=== PATIENT | male | born 1985 | race Caucasian/White ===

== ENCOUNTER 2023-03-05 21:09 | Emergency (ER) | payer MEDICARE, MEDICAID, SELFPAY ==
[2023-03-05 21:13] VITALS: BP 126/89; PULSE 70; RESP 16; TEMP 37; O2SAT 100; BMI 26.4
--- NOTE | 2023-03-05 21:39 | ED.ABDPAIN1 ---
HPI - Abdominal Pain General Chief Complaint: Abdominal Pain Stated Complaint: ABDOMINAL PAIN Time Seen by Provider: 03/05/23 21:25 Source: patient Mode of arrival: walk-in History of Present Illness HPI narrative: presents complaining of left CVA pain . states pain started yesterday. No fever or urinary symptoms. No associated nausea or vomiting MD elicited complaint: Reports abdominal pain and flank pain Related Data Home Medications Medication Instructions Recorded Confirmed doxepin 10 mg capsule 20 mg PO QPM 03/05/23 03/05/23 lamotrigine 25 mg tablet 50 mg PO BID 03/05/23 03/05/23 rufinamide 200 mg tablet 200 mg PO QAM 03/05/23 03/05/23 rufinamide 200 mg tablet 200 mg PO QPM 03/05/23 03/05/23 sumatriptan succinate 100 mg tablet 100 mg PO Q2H PRN migraine headache 03/05/23 03/05/23 topiramate 100 mg tablet 200 mg PO BID 03/05/23 03/05/23 Allergies Allergy/AdvReac Type Severity Reaction Status Date / Time No Known Drug Allergies Allergy Verified 03/05/23 21:13 Review of Systems ROS Status of ROS 10 or more systems reviewed and unremarkable except as noted in history and below Exam Constitutional Vital Signs, click to edit/add: Last Vital Signs Temp 98.6 F 03/05/23 21:13 Pulse 70 03/05/23 21:13 Resp 16 03/05/23 21:13 BP 126/89 03/05/23 21:13 Pulse Ox 100 03/05/23 21:13 O2 Del Method Room Air 03/05/23 21:13 Common normals: no apparent distress, average body habitus, oriented x3, no limitations and healthy appearing Eye Common normals: EOMs intact bilaterally and conjunctivae normal Respiratory Common normals: normal respiratory effort, no retractions, no use of accessory muscles and clear to auscultation bilaterally GI Other: mild LLQ tenderness Extremity Common normals: normal to inspection, full ROM, normal capillary refill and no joint enlargement Neuro Common normals: oriented x3, CN's II-XII intact bilaterally, moves all extremities and no focal motor deficits Psych Appearance: grossly normal Course Vital Signs Vital signs: Vital Signs Temperature 98.6 F 03/05/23 21:13 Pulse Rate 70 03/05/23 21:13 Respiratory Rate 16 03/05/23 21:13 Blood Pressure 126/89 03/05/23 21:13 Pulse Oximetry 100 03/05/23 21:13 Oxygen Delivery Method Room Air 03/05/23 21:13 Temperature 98.6 F 03/05/23 21:13 Pulse Rate 70 03/05/23 21:13 Respiratory Rate 16 03/05/23 21:13 Blood Pressure 126/89 03/05/23 21:13 Pulse Oximetry 100 03/05/23 21:13 Oxygen Delivery Method Room Air 03/05/23 21:13 MDM - Abdominal Pain MDM Narrative Medical decision making narrative: patient presents with left CVA/LLQ pain since yesterday. No fever or vomiting. No dyuria. CT with proximal 6.5mm stone and hydronephrosis. UA without infection. Pain is mild and patient not requesting pain relief. Advised of the importance of follow up with Nephrology. Discharged home with Toradol and flomax. discharged home in stable condition Lab Data Labs: Lab Results 03/05/23 Range/Units 21:32 WBC 12.7 H (4.0-11.0) 10^3/uL RBC 4.49 L (4.70-6.10) 10^6/uL Hgb 13.5 L (14.0-18.0) g/dL Hct 41.6 L (42.0-54.0) % MCV 92.7 (80.0-94.0) fL MCH 30.1 (25.9-34.0) pg MCHC 32.5 (29.9-35.2) g/dL RDW 13.1 (11.0-15.0) % Plt Count 335 (150-450) 10^3/uL MPV 10.2 (9.5-13.5) fL Neut % (Auto) 70.9 (43.0-75.0) % Lymph % (Auto) 20.3 L (20.5-60.0) % [place] % (Auto) 7.2 (1.7-12.0) % Eos % (Auto) 0.7 L (0.9-7.0) % Baso % (Auto) 0.6 (0.2-2.0) % Neut # (Auto) 9.0 H (1.4-6.5) 10^3/uL Lymph # (Auto) 2.6 (1.2-3.8) 10^3/uL [place] # (Auto) 0.9 H (0.3-0.8) 10^3/uL Eos # (Auto) 0.1 (0.0-0.7) 10^3/uL Baso # (Auto) 0.1 (0.0-0.1) 10^3/uL Abs Immat Gran (auto) 0.04 H (0.00-0.03) 10^3/uL Imm/Tot Granulo (auto) 0.3 (0.0-0.5) % Sodium 141 (136-145) mmol/L Potassium 3.5 (3.5-5.1) mmol/L Chloride 109 H (98-107) mmol/L Carbon Dioxide 24.2 (21.0-32.0) mmol/L Anion Gap 11.3 BUN 11.0 (7.0-18.0) mg/dL Creatinine 1.09 (0.70-1.30) mg/dL Est GFR ( Amer) >60 (>=60) Est GFR (Non-Af Amer) >60 (>=60) BUN/Creatinine Ratio 10.1 Glucose 101 (74-106) mg/dL Calcium 8.3 L (8.5-10.1) mg/dL Urine Color Lt. yellow (YELLOW) Urine Clarity Clear (CLEAR) Urine pH 5.5 (5.0-9.0) Ur Specific [place] 1.020 (1.005-1.025) Urine Protein Negative (NEG/TRACE) mg/dL Urine Glucose (UA) Negative (NEGATIVE) mg/dL Urine Ketones Negative (NEGATIVE) mg/dL Urine Occult Blood Moderate A (NEGATIVE) Urine Nitrite Negative (NEGATIVE) Urine Bilirubin Negative (NEGATIVE) Urine Urobilinogen 0.2 (0.2-1.0) EU/dL Ur Leukocyte Esterase Negative (NEGATIVE) Urine RBC 0-2 (0-2) #/HPF Urine WBC 0-2 A (NONE SEEN) #/HPF Ur Squamous Epith Cells None seen (NONE/RARE) #/LPF Urine Crystals None seen (None Seen) #/HPF Urine Bacteria None seen (NONE SEEN) #/HPF Urine Casts None seen (NONE SEEN) #/LPF Urine Mucus None seen (NONE SEEN) Ur Culture Indicated? No Imaging Data CT scan - abdomen: Attestation: I have reviewed the pertinent imaging results. My impression: [email or web address]=#[email or web address]?file=#[email or web address] Find: Highlight all Match case Current View [email or web address]?file=#[email or web address]=auto,-13,601 Page: of 2 Current View [email or web address]?file=#[email or web address]=auto,-13,601 [place] [id number] Patient Name: DAVIS BUSCH MRN: [id number] date: 1985 Sex: M Assigned Patient Location: ER Current Patient Location: ER Accession/Order Number: [id number] Exam Date: 03/05/2023 21:56 Report Date: 03/05/2023 22:43 At the request of: RONA BUSCH Procedure: CT abdomen pelvis w con EXAMINATION: CT abdomen pelvis w con HISTORY: LLQ pain , vomiting COMPARISON: No relevant comparison available. TECHNIQUE: Axial, Coronal, and Sagittal images were obtained without and/or with IV contrast as indicated by examination type. Dose reduction techniques were achieved by using automated exposure control and/or adjustment of mA and/or kV according to patient size and/or use of iterative reconstruction technique. FINDINGS: LUNG BASES: No visible pulmonary or pleural disease. LIVER: No enlargement, atrophy, suspicious density, or significant focal lesion. BILIARY: No dilatation or calcification. PANCREAS: No lesion, fluid collection, or abnormal duct dilatation. SPLEEN: No enlargement or focal lesion. ADRENALS: No mass or enlargement. KIDNEYS: Mild left hydronephrosis secondary to a partially obstructing 6 x 5 x 4 mm stone within proximal ureter. No additional urinary tract calculi. Tiny benign-appearing cyst within right and left kidney. BOWEL/MESENTERY: No visible mass, obstruction, or bowel wall thickening. AORTA/VASCULAR: No aneurysm or dissection. RETROPERITONEUM: No mass or adenopathy. LYMPH NODES: No adenopathy. URINARY BLADDER: No visible focal wall thickening, lesion, or calculus. PELVIC ORGANS: No visible mass. Pelvic organs appropriate for patient age. ABDOMINAL WALL: No mass or hernia. BONES: No bony lesion or fracture. OTHER: Negative. IMPRESSION: 1.Mild left hydronephrosis and hydroureter secondary to a partially obstructing6 x 5 x 4 mm stone within proximal ureter. Electronically authenticated by: REBECCA SNOW Date: 03/05/2023 22:43 Discharge Plan Discharge Chief Complaint: Abdominal Pain Clinical Impression: Renal colic on left side Prescriptions / Home Meds: No Action topiramate 100 mg tablet 200 mg PO BID lamotrigine 25 mg tablet 50 mg PO BID rufinamide 200 mg tablet 200 mg PO QAM rufinamide 200 mg tablet 200 mg PO QPM Rx Instructions: give with meal/snack doxepin 10 mg capsule 20 mg PO QPM sumatriptan succinate 100 mg tablet 100 mg PO Q2H PRN (Reason: migraine headache) Instructions: Renal Colic (ED) Additional Instructions: follow up with Urology. Dr Charles Drink plenty of fluids. Return if pain not controlled or you develop a fever Stand Alone Forms: Portal Instructions Referrals: [facility] [Primary Care Provider] - 1 week
[2023-03-05 21:47] LABS: Basophils Absolute Auto 0.1 10^3/uL (0.0-0.1); Basophils Percent Auto 0.6 % (0.2-2.0); Eosinophils Absolute Auto 0.1 10^3/uL (0.0-0.7); Eosinophils Percent Auto 0.7 % (0.9-7.0); Hematocrit 41.6 % (42.0-54.0); Hemoglobin 13.5 g/dL (14.0-18.0); Immature Granulocytes Abs Auto 0.04 10^3/uL (0.00-0.03); Immature Granulocytes Pct Auto 0.3 % (0.0-0.5); Lymphocytes Absolute Auto 2.6 10^3/uL (1.2-3.8); Lymphocytes Percent Auto 20.3 % (20.5-60.0); Mean Corpuscular HGB Conc 32.5 g/dL (29.9-35.2); Mean Corpuscular Hemoglobin 30.1 pg (25.9-34.0); Mean Corpuscular Volume 92.7 fL (80.0-94.0); Mean Platelet Volume 10.2 fL (9.5-13.5); Monocytes Absolute Auto 0.9 10^3/uL (0.3-0.8); Monocytes Percent Auto 7.2 % (1.7-12.0); Neutrophils Percent Auto 70.9 % (43.0-75.0); Platelet Count 335 10^3/uL (150-450); Red Blood Count 4.49 10^6/uL (4.70-6.10); Red Cell Distribution Width 13.1 % (11.0-15.0); White Blood Count 12.7 10^3/uL (4.0-11.0)
[2023-03-05 21:48] LABS: Bilirubin Urine NEGATIVE (NEGATIVE); Blood Urine MODERATE (NEGATIVE); Clarity Urine CLEAR (CLEAR); Color Urine LT. YELLOW (YELLOW); Glucose Urine UA NEGATIVE (NEGATIVE); Ketones Urine NEGATIVE (NEGATIVE); Leukocyte Esterase Urine NEGATIVE (NEGATIVE); Nitrite Urine NEGATIVE (NEGATIVE); Protein Urine NEGATIVE (NEG/TRACE); Urobilinogen Urine 0.2 EU/dL (0.2-1.0); pH Urine 5.5 (5.0-9.0)
[2023-03-05 21:49] LABS: Urine Microscopic Indicated YES
[2023-03-05 21:52] LABS: Anion Gap 11.3; BUN Creatinine Ratio 10.1; Calcium 8.3 mg/dL (8.5-10.1); Carbon Dioxide 24.2 mmol/L (21.0-32.0); Chloride 109 mmol/L (98-107); Estimated GFR (African America >60 (>=60); Estimated GFR (Non-African Ame >60 (>=60); Glucose 101 mg/dL (74-106); Potassium 3.5 mmol/L (3.5-5.1); Sodium 141 mmol/L (136-145)
[2023-03-05 21:58] LABS: Bacteria Urine NONE SEEN #/HPF (NONE SEEN); Cast Seen? NONE SEEN #/LPF (NONE SEEN); Crystals Seen? None Seen #/HPF (None Seen); Mucus Urine NONE SEEN (NONE SEEN); RBC Urine 0-2 #/HPF (0-2); Squamous Epithelial Cell Urine NONE SEEN #/LPF (NONE/RARE); Urine Culture Indicated NO; WBC Urine 0-2 #/HPF (NONE SEEN)
[2023-03-05] MEDS: KETOROLAC TROMETHAMINE 10 MG TABLET PO (23:20)
[2023-03-05] MEDS: TAMSULOSIN HCL 0.4 MG CAPSULE PO (23:20)
== END 2023-03-05 23:27 | disposition home or self-care (01) ==
PROVIDERS: Emergency Provider Internal Medicine
DX: N13.2 Hydronephrosis with renal and ureteral calculous obstruction (principal); Z79.899 Other long term (current) drug therapy
CPT/HCPCS: 36415; 74177; 80048; 81001; 85025; 99284; Q9967